=== PATIENT | male | born 1990 | race African-American/Black ===

== ENCOUNTER 2024-11-04 12:07 | Emergency (ER) | payer OTHER ==
[~2024-11-04] VITALS: Ht 175.3 cm; Wt 70.5 kg
[2024-11-04 12:13] VITALS: BP 119/71; PULSE 90; RESP 14; O2SAT 100
--- NOTE | 2024-11-04 14:19 | Physician Documentation ---
History of Present Illness ~ Chief Complaint: STD Stated Complaint: STD CHECK Time Seen by MD: 12:48 HPI The patient is seen today with complaints of having recently had sexual intercourse penis in vagina intercourse with a girl and [place] who later told the patient that she had chlamydia. Patient states [place] occurred [place] about two weeks ago. Patient states he is now having penile discharge. Patient states he also has history of genital herpes and states he is having a recurrent outbreak with sores around his foreskin. Patient states it is very painful. He has no other concern or complaint at this time. He denies any fevers or chills. Medication Reconciliation Allergies: Coded Allergies: No Known Allergies (Unverified , 11/04/24) Review of Systems Constitutional: Denies: chills, fever, weakness Eyes: Denies: pain, blurred vision ENT: Denies: ear pain, nose pain, throat pain, mouth pain Respiratory: Denies: cough, shortness of breath Cardiovascular: Denies: chest pain, palpitations Gastrointestinal: Denies: abdominal pain, nausea, vomiting Genitourinary: Denies: burning, dysuria Male Genitalia: Denies: penile discharge, testicular pain Neurological: Denies: headache, dizziness Musculoskeletal: Denies: pain, swelling Integumentary: Denies: rash, lesions Allergic/Immunologic: Denies: hives, itching Hematologic/Lymphatic: Denies: no symptoms reported Psychiatric: Denies: depression, anxiety Physical Exam Vital Signs: Temperature: 98.6, Source: Temporal, Heart Rate: 90, Respiratory Rate: 14, BP: 119/71, Pulse Oximetry: 100, Weight: 70.450 Oxygen Flow Rate: 0 Physical Exam General: Awake and Alert, no acute distress. HEENT: Conjunctiva pink, Sclera clear, Mucus Membranes moist. Neck: Supple without masses and tenderness. Resp: Unlabored. Lungs clear to auscultation bilaterally. Heart: Regular Rate and rhythm, normal S1 and S2 without murmur, rub or gallop. Genitourinary: On exam patient does have sores on the end of his foreskin consistent with genital herpes lesions. Patient was unable to retract his foreskin due to pain. Abdomen: Soft and non tender no organomegaly Extremities: No cyanosis,clubbing or edema. Skin: Warm and Dry. Progress Results/Orders Results/Orders Completed Orders - SIMS,OLENA R PAC Valacyclovir Tablet (Valtrex Tablet) (11/04/24 14:15) Ceftriaxone Im Kit W/Lidocaine (Rocephin (11/04/24 14:17) Azithromycin Tablet (Zithromax Tablet) (11/04/24 14:17) Vital Signs 11/04/24 12:13 Temp 98.6 Pulse 90 Resp 14 B/P (MAP) 119/71 Pulse Ox 100 O2 Flow Rate 0 Medical Decision Making Findings The patient is seen today with complaints of having recently had sexual intercourse penis in vagina intercourse with a girl and [place] who later told the patient that she had chlamydia. Patient states intercourse occurred [place] about two [place] ago. Patient states he is now having penile discharge. Patient states he also has history of genital herpes and states he is having a recurrent outbreak with sores around his foreskin. Patient states it is very painful. He has no other concern or complaint at this time. He denies any fevers or chills. Specimen was sent for testing for chlamydia and gonorrhea. Patient was given dose of valacyclovir 2 g by mouth, azithromycin 1 g by mouth, Rocephin 1 g IM in the ED today. Prescription for valacyclovir 1 g twice a day for three days sent to patient pharmacy. [facility] 1-2 months. Patient will return to ED with any worsening, concerning or changing symptoms. Departure Disposition: HOME / SELF CARE / HOMELESS Impression: Primary Impression: Sexually transmitted disease Condition: Stable Discharge Instructions: Chlamydia, Male, Sexually Transmitted Disease Additional Instructions: Specimen was sent for testing for chlamydia and gonorrhea. Patient was given dose of valacyclovir 2 g by mouth, azithromycin 1 g by mouth, Rocephin 1 g IM in the ED today. Prescription for valacyclovir 1 g twice a day for three days sent to patient pharmacy. Patient will [facility] 1-2 months. Patient will return to ED with any worsening, concerning or changing symptoms. Referrals: NO PRIMARY CARE PROVIDER (PCP) Prescriptions Valacyclovir HCl (Valacyclovir) 1,000 Mg Tablet 1 TAB PO BID for 3 Days, #6 TAB 0 Refills Prov: OLENA SIMS 11/04/24 Signature Scribe Signature: No scribe Attestation: No scribe OLENA SIMS PAC Nov 04, 2024 14:19
[2024-11-04] MEDS ORDERED: VALA100031 PO (14:48)
[2024-11-04] MEDS: CefTRIAXone 1000mg IM Kit (w/lidocaine diluent) IM STA (15:21)
[2024-11-04 15:35] VITALS: TEMP 98.6
== END 2024-11-04 15:37 | disposition home or self-care (01) ==
LOC: ER 12:09
DX: A64 Unspecified sexually transmitted disease (principal)
CPT/HCPCS: 36415; 87491; 87591; 96372; 99283; J0696